=== PATIENT | female | born 1955 | race Caucasian/White ===

== ENCOUNTER → 2016-12-05 | Outpatient (CLI) | payer MEDICARE, BC ==
[~2016-12-05] MED LIST: AMITRIPTYLINE H25 MG PO; ASPIRIN EC81 MG PO; BENADRYL25 MG PO; BENTYL10 MG PO; BIOTIN5 MG PO; CALAN SR GENER180 MG PO; CITRACAL + D M1 EACH PO; COUMADIN **IA7.5 MG PO; COZAAR50 MG PO; CPAP INH; EPIPEN0.3 MG IM; FISH OIL 1,0001 EAC1 PO; FLONASE 50 MCG/16 GM NOSE; LASIX40 MG PO; LIPITOR10 MG PO; MULTIPLE VITAM1 EACH PO; NORCO 5-325 TA1 EACH PO; OMEPRAZOLE40 MG PO; PROAIR HFA8.5 GM INH; ROBAXIN750 MG PO; SINGULAIR10 MG PO; TOPROL XL100 MG PO; VITAMIN D1000 UNI1 PO; VITAMIN E400 UNI1 PO; ZYRTEC10 MG PO
== END | disposition disaster alternative care site (69) ==
LOC: GRAD 12:55
DX: M47.22 Other spondylosis with radiculopathy, cervical region (principal); M54.2 Cervicalgia; R68.89 Other general symptoms and signs; M43.22 Fusion of spine, cervical region; M48.02 Spinal stenosis, cervical region
CPT/HCPCS: G8996; G8997; G8998

== ENCOUNTER → 2017-03-27 | Outpatient (CLI) | payer MEDICARE, BC | END | disposition disaster alternative care site (69) | LOC: GRAD 09:38 | DX: N20.0 Calculus of kidney (principal) ==